=== PATIENT | female | born 1975 | race Caucasian/White ===

== ENCOUNTER 2020-12-22 15:11 | Emergency (ER) | payer OTHER ==
[~2020-12-22 15:11] MED LIST: BACLOFEN 10MG T10 MG PO; BENTYL10 MG PO; MEDROL 4MG DOSEP4 MG PO; PROTONIX 40MG T40 MG PO; VOLTAREN **OUT50 MG PO; ZOFRAN4 MG PO
== END 2020-12-22 18:42 | disposition home or self-care (01) ==
LOC: FER 15:11
DX: N91.2 Amenorrhea, unspecified (principal); Z98.890 Other specified postprocedural states; Z88.0 Allergy status to penicillin
CPT/HCPCS: 36415; 84702; 99282